=== PATIENT | female | born 1970 | race Caucasian/White ===

== ENCOUNTER 2016-12-26 22:03 | Emergency (ER) | payer MEDICARE, OTHER ==
[~2016-12-26] VITALS: Ht 165.1 cm; Wt 72.5 kg
[~2016-12-26 22:03] MED LIST: ESTR.3 PO; LORA0.5T PO; METF-324 PO
[2016-12-26 22:10] VITALS: BP 131/76; PULSE 95; RESP 16; TEMP 98; O2SAT 99
[2016-12-26] MEDS ORDERED: ESTR0.5T PO (22:17)
--- NOTE | 2016-12-26 22:39 | PD ---
HPI Chief Complaint: Musculoskeletal Complaint Time Seen by Provider: 22:34 Travel History International Travel<30 days: No Contact w/Intl Traveler<30days: No Traveled to known affect area: No History of Present Illness HPI This 46-year-old female is complaining of pain in her right knee. He says he been having pain for about 2 weeks. There is no history of injury. She has not had pain in her knee before. There has not been any fever or chills. She has no history of arthritis. She says the pain is quite severe. It isn't very bad when she first wakes up. She is on her feet a lot at work. PFSH Past Medical History Hx Anticoagulant Therapy: No Asthma: No Heart Rhythm Problems: No Cancer: No Cardiovascular Problems: No High Cholesterol: No Chemotherapy: No Chest Pain: No Congestive Heart Failure: No COPD: No Cerebrovascular Accident: No Diabetes: Yes (TYPE II) Diminished Hearing: No Endocrine: Yes Gastrointestinal Disorders: Yes (GERD) GERD: No Genitourinary: No Hepatitis: No Hiatal Hernia: No Immune Disorder: No Kidney Stones: No Musculoskeletal: Yes (ARTHRITIS, NECK PAIN) Neurologic: No Psychiatric: Yes (CLAUSTROPHOBIA, ANXIETY/ DEPRESSION, PTSD) Reproductive: Yes (PELVIC PAIN, OVARIAN CYSTS) Respiratory: No Migraines: No Renal Failure: No Seizures: No Sleep Apnea: No Thyroid Disease: No Ulcer: No Tetanus Vaccination: < 5 Years Influenza Vaccination: No ?: Not Ovarian Cysts: Yes Tubal Ligation: Yes Past Surgical History Abdominal Aneurysm Repair: Yes Abdominal Surgery: No AICD: No Appendectomy: Yes Body Medical Devices: CERVICAL HARDWARE Cardiac Surgery: No Ear Surgery: No Endocrine Surgery: No Eye Surgery: No Genitourinary Surgery: No Gynecologic Surgery: No Hysterectomy: Yes Joint Replacement: No Neurologic Surgery: Yes (CERVICAL FUSION (X2)) Oral Surgery: No (SINUS SURGERY) Pacemaker: No Thoracic Surgery: No Tonsillectomy: Yes Other Surgery: Yes (NECK SX, SINUS SX, CYST REMOVED) Social History Alcohol Use: Yes (RARELY) Tobacco Use: Yes (1/2 PPD) Substance Use: No Allergies-Medications (Allergen,Severity, Reaction): Coded Allergies: Aspirin (Verified Allergy, Severe, NAUSEA/HIVES, 05/24/15) Ibuprofen (Verified Allergy, Severe, ITCH/NAUSEA/LIPS SWELLING, 05/24/15) Tramadol (Verified Allergy, Severe, ITCHING, 05/24/15) Reported Meds & Prescriptions Reported Meds & Active Scripts Active Reported Estradiol 0.5 Mg Tab 0.5 Mg PO DAILY Review of Systems General / Constitutional: No: Fever, Chills Eyes: No: Diploplia HENT: No: Headaches Cardiovascular: No: Chest Pain or Discomfort Respiratory: No: Cough, Shortness of Breath Gastrointestinal: No: Nausea, Vomiting Genitourinary: No: Urgency Musculoskeletal: Positive: Myalgias, Pain Skin: No Rash, No Itching Neurologic: No: Weakness, Dizziness Physical Exam Narrative GENERAL: Well-developed female SKIN: Focused skin assessment warm/dry. HEAD: Atraumatic. Normocephalic. EYES: Pupils equal and round. No scleral icterus. No injection or drainage. ENT: No nasal bleeding or discharge. Mucous membranes pink and moist. NECK: Trachea midline. No JVD. MUSCULOSKELETAL: No obvious deformities. No clubbing. No cyanosis. No edema. Examining the left knee there is a palpable effusion. I am able to flex and extend the knee. There is no gross instability to varus or valgus stress. There is no warmth or erythema NEUROLOGICAL: Awake and alert. No obvious cranial nerve deficits. Motor grossly within normal limits. Normal speech. PSYCHIATRIC: Appropriate mood and affect; insight and judgment normal. Data Data Last Documented VS Vital Signs Date Time Temp Pulse Resp B/P Pulse Ox O2 Delivery O2 Flow Rate FiO2 12/26/16 22:10 98.0 95 16 131/76 99 Room Air Orders Knee, Complete (4vws) (12/26/16 22:35) Oxycodone-Acetamin 5-325 Mg (Percocet (12/26/16 22:45) [facility] Medical Decision Making Medical Screen Exam Complete: Yes Emergency Medical Condition: Yes Medical Record Reviewed: Yes Differential Diagnosis Differential includes degenerative joint disease, arthritis of knee, internal derangement Narrative Course X-ray is negative. Patient seems to get a lot worse with flexing and weightbearing. I'm in a trial of the knee immobilizer and crutches. She is to follow-up with orthopedist if this does not provide relief Diagnosis Primary Impression: Arthritis of left knee Scripts Oxycodone-Acetaminophen (Percocet)5-325 mg Tab1-2 Tab PO Q6H PRN (PAIN) #30 TAB Ref 0 Prov:Merrill Gamble MD 12/26/16 Disposition: 01 DISCHARGE HOME Condition: Stable Merrill Gamble MD Dec 26, 2016 22:39
[2016-12-26] MEDS ORDERED: oxyCODONE/ACETAMINOPHEN 5 MG/325 MG TAB PO ONE (22:45)
--- NOTE | 2016-12-26 22:55 | RADHPO ---
EXAM DATE/TIME: 12/26/2016 22:44 [facility] COMPARISON: No previous studies available for comparison. INDICATIONS : Left knee pain. No known injury. MEDICAL HISTORY : None. SURGICAL HISTORY : None. ENCOUNTER: Initial ACUITY: 1 week PAIN SCORE: 9/10 LOCATION: Left knee FINDINGS: Four view examination of the left knee demonstrates no evidence of fracture or dislocation. Bony min eralization is normal. The articular surfaces are intact. The suprapatellar soft tissues have a nor mal configuration. CONCLUSION: No acute disease. Eladio Sanders MD on December 26, 2016 at 22:54 Board Certified Radiologist. This report was verified electronically.
[2016-12-26] MEDS ORDERED: PERC5TAB12 PO (23:29)
[2016-12-27 00:15] VITALS: RESP 18
== END 2016-12-27 00:18 | disposition home or self-care (01) ==
LOC: PHEFT 22:03
DX: M17.12 Unilateral primary osteoarthritis, left knee (principal)
CPT/HCPCS: 73564; 99283; E0113; L1830

== ENCOUNTER 2017-07-08 21:14 | Emergency (ER) | payer SELFPAY ==
[~2017-07-08] VITALS: Ht 165.1 cm; Wt 75.3 kg
[~2017-07-08 21:14] MED LIST changes: -ESTR.3 PO; +ESTR0.5T PO; -LORA0.5T PO; -METF-324 PO; +PERC5TAB12 PO
[2017-07-08 21:23] VITALS: BP 115/57; PULSE 92; RESP 14; TEMP 98.7; O2SAT 97
--- NOTE | 2017-07-08 21:51 | PD ---
HPI . Left hip pain Chief Complaint: Pain: Acute or Chronic Time Seen by Provider: 21:30 Travel History International Travel<30 days: No Contact w/Intl Traveler<30days: No Traveled to known affect area: No History of Present Illness HPI 47 year old female patient reports emergency room for evaluation of left hip pain that started a couple days ago. Patient denies any, or injury to the site. Patient denies any falls. Patient states she is able to ambulate with a limp. Patient denies any fever, chills, malaise, shortness breath, hematuria, dysuria. Patient states the pain is localized to the hip and does not radiate anywhere. The left hip is warm to the touch. The pain is reproducible to palpation. There is no obvious deformity to the hip or the leg. No ecchymosis , cyanosis or erythema noted. PFSH Past Medical History Hx Anticoagulant Therapy: No Asthma: No Heart Rhythm Problems: No Cancer: No Cardiovascular Problems: No High Cholesterol: No Chemotherapy: No Chest Pain: No Congestive Heart Failure: No COPD: No Cerebrovascular Accident: No Diabetes: Yes Patient Takes Glucophage: No Diminished Hearing: No Endocrine: Yes GERD: No Genitourinary: No Hepatitis: No Hiatal Hernia: No Immune Disorder: No Kidney Stones: No Musculoskeletal: Yes (ARTHRITIS, NECK PAIN) Neurologic: No Psychiatric: Yes (CLAUSTROPHOBIA, ANXIETY/ DEPRESSION, PTSD) Reproductive: Yes (PELVIC PAIN, OVARIAN CYSTS) Respiratory: No Migraines: No Renal Failure: No Seizures: No Sleep Apnea: No Thyroid Disease: No Ulcer: No ?: Not Ovarian Cysts: Yes Tubal Ligation: Yes Past Surgical History Abdominal Aneurysm Repair: Yes Abdominal Surgery: No AICD: No Appendectomy: Yes Body Medical Devices: CERVICAL HARDWARE Cardiac Surgery: No Ear Surgery: No Endocrine Surgery: No Eye Surgery: No Genitourinary Surgery: No Gynecologic Surgery: No Hysterectomy: Yes Joint Replacement: No Pacemaker: No Thoracic Surgery: No Tonsillectomy: Yes Other Surgery: Yes (NECK SURGURY ) Social History Alcohol Use: No Tobacco Use: Yes (1/2 PPD) Substance Use: No Allergies-Medications (Allergen,Severity, Reaction): Coded Allergies: aspirin (Unverified Allergy, Severe, NAUSEA/HIVES, 07/08/17) ibuprofen (Unverified Allergy, Severe, ITCH/NAUSEA/LIPS SWELLING, 07/08/17 ) tramadol (Unverified Allergy, Severe, ITCHING, 07/08/17) Reported Meds & Prescriptions Reported Meds & Active Scripts Active Review of Systems Except as stated in HPI: all other systems reviewed are Neg Physical Exam Narrative GENERAL: Well-nourished, well-developed 47-year-old female patient in no acute distress. Nontoxic appearing. SKIN: Focused skin assessment warm/dry. HEAD: Normocephalic. Atraumatic. EYES: No scleral icterus. No injection or drainage. NECK: Supple, trachea midline. No JVD or lymphadenopathy. CARDIOVASCULAR: Regular rate and rhythm without murmurs, gallops, or rubs. Pedal pulses +2 bilaterally. RESPIRATORY: Breath sounds equal bilaterally. No accessory muscle use. GASTROINTESTINAL: Abdomen soft, non-tender, nondistended. MUSCULOSKELETAL: Full range of motion to bilateral lower extremities. Left hip hurts is warm to the touch and painful with movement. No cyanosis, erythema or edema. BACK: Nontender without obvious deformity. No CVA tenderness. Data Data Last Documented VS Vital Signs Date Time Temp Pulse Resp B/P (MAP) Pulse Ox O2 Delivery O2 Flow Rate FiO2 07/08/17 21:23 98.7 92 14 115/57 (76) 97 Orders Orders Hip, Uni(Ap&Lat) Wo Ap Pelvis (07/08/17 21:39) Ice/Cold Pack (07/08/17 21:39) Ketorolac Inj (Toradol Inj) (07/08/17 22:45) Orphenadrine Inj (Norflex Inj) (07/08/17 22:45) MDM Medical Decision Making Medical Screen Exam Complete: Yes Emergency Medical Condition: Yes Differential Diagnosis Differential diagnoses include but not limited to hip contusion, hip fracture, muscle strain, muscle sprain, osteoarthritis, osteomyelitis Narrative Course 47-year-old female presents emergency department for evaluation of left hip pain that started spontaneously 3 days ago. Patient denies any trauma injury site. Left hip has full range of motion however is warm to the touch and is painful with movement. No erythema, edema, cyanosis or ecchymosis noted. Neurovascularly the left leg is intact. The patient is ambulatory with a limp. X-ray of the left hip ordered and pending. Ice pack will be applied to the left hip. Left hip x-ray shows no acute abnormalities. Based on patient 's symptoms, clinical presentation, radiological results, vital sign review and physical exam it is not necessary to admit the patient to the hospital or keep the patient in the emergency department for further evaluation. Patient will given an IM injection of Toradol and an IM injection of Norflex and be discharged home with instructions to follow-up with her primary care. Diagnosis Primary Impression: Left hip pain Referrals: Primary Care Physician Patient Instructions: General Instructions, Hip Pain (ED) Additional Instructions: Please return to emergency department if your symptoms return or worsen. Follow up with your primary care provider. May take [id number] Motrin as needed for pain and inflammation. May use ice to left hip as for pain and inflammation Disposition: 01 DISCHARGE HOME Condition: Stable Faye Godinez Jul 08, 2017 21:51
--- NOTE | 2017-07-08 22:19 | RADRPT ---
EXAM DATE/TIME: 07/08/2017 22:01 [facility] COMPARISON: No previous studies available for comparison. INDICATIONS : Left hip pain for 4 days. No known injury. MEDICAL HISTORY : None. SURGICAL HISTORY : None. ENCOUNTER: Initial ACUITY: 4 - 6 days PAIN SCORE: 8/10 LOCATION: Left posterior hip. FINDINGS: A two view examination of the left hip was performed. The primary and secondary trabecular pattern o f the femoral neck is intact. The hip joint is of normal width without significant sclerosis or bony hypertrophy. The acetabulum is grossly intact. CONCLUSION: Normal examination for a patient of this age. James Jacobson MD on July 08, 2017 at 22:17 Board Certified Radiologist. This report was verified electronically.
[2017-07-08] MEDS ORDERED: ORPHENADRINE INJ 60 MG/2 ML AMP IM ONE (22:45)
[2017-07-08] MEDS ORDERED: KETOROLAC TROMETHAMINE 60 MG/2 ML (IM) VIAL IM ONE (22:45)
== END 2017-07-08 23:04 | disposition home or self-care (01) ==
LOC: PHEFT 21:14
DX: M25.552 Pain in left hip (principal); E11.9 Type 2 diabetes mellitus without complications; F32.9 Major depressive disorder, single episode, unspecified
CPT/HCPCS: 73502; 96372; 99284; J1885; J2360